=== PATIENT | male | born 1945 | race Caucasian/White ===

== ENCOUNTER → 2019-02-17 | Outpatient (CLI) | payer MEDICARE, OTHER ==
[~2019-02-17] MED LIST: BACL-19 PO; BUPR100T6 PO; BUPR300T4 PO; BUSP10TA PO; CLON0.12 PO; CLON0.1T22 PO; CYCL-259 PO; DIAZ5TAB PO; DISU250T2 PO; GABA300C10 PO; HYDR-3241 PO; LISI-170 PO; LORA-446 PO; LORA2TAB PO; SERT100T PO; SERT100T32 PO; TRAM-47 PO; [UNRECOGNIZED DRUG - OTHER]
== END | disposition home or self-care (01) ==
LOC: CFH 12:51
PROVIDERS: ATTEND Physical Medicine & Rehabilitation
DX: S46.012A Strain of muscle(s) and tendon(s) of the rotator cuff of left shoulder, initial encounter (principal); S43.102A Unspecified dislocation of left acromioclavicular joint, initial encounter; M94.212 Chondromalacia, left shoulder; M53.80 Other specified dorsopathies, site unspecified; M48.07 Spinal stenosis, lumbosacral region; M47.817 Spondylosis without myelopathy or radiculopathy, lumbosacral region; X58.XXXA Exposure to other specified factors, initial encounter; Y93.89 Activity, other specified; Y92.89 Other specified places as the place of occurrence of the external cause; Y99.8 Other external cause status
CPT/HCPCS: 72148